=== PATIENT | male | born 1960 | race Caucasian/White ===

== ENCOUNTER 2021-10-01 14:19 | Inpatient (IN) | payer BC ==
[2021-10-01] MEDS ORDERED: methylPREDNISolone SOD SUCCI 125 MG/2 ML VIAL IV STA (16:52)
[2021-10-01] MEDS ORDERED: IPRATROPIUM-ALBUTEROL 3 ML NEB INHALATION STA ×2 (16:52→19:21)
[2021-10-01] MEDS ORDERED: ALBUTEROL NEB (CONC) 2.5 MG/0.5 ML INHALATION STA ×2 (16:52→19:21)
--- NOTE | 2021-10-01 17:06 | ED ---
SOB HPI - General Chief Complaint: Shortness of Breath Stated Complaint: asthma issues Time Seen by Provider: 10/01/21 16:37 Source: patient Mode of arrival: wheelchair Limitations: no limitations - History of Present Illness Initial Comments: 61 year-old male patient with past history significant for asthma presents for evaluation of worsening shortness of breath over the last 2-3 days. Patient states he has been using symbicort and doing breathing treatments with minimal relief of his symptoms. States that he has had increased cough and is coughing up green sputum. States this is a change. He denies any fever or chills. Denies any nausea or vomiting. States he has had diarrhea. He has remote history of smoking for a short time as a 21 year old. He denies any chest pain. Reports tightness. Has had hospitalizations for asthma in the past, never intubated. Patient denies any recent rash, constipation, back pain, numbness, tingling, dizziness, weakness, hematuria, dysuria, urinary urgency, urinary frequency, headache, visual changes, or any other complaints. - Related Data Allergies Allergy/AdvReac Type Severity Reaction Status Date / Time No Known Allergies Allergy Verified 10/01/21 15:45 Review of Systems ROS Statement: Those systems with pertinent positive or pertinent negative responses have been documented in the HPI. ROS Other: All systems not noted in ROS Statement are negative. Past Medical History Past Medical History: Asthma, Hypertension History of Any Multi-Drug Resistant Organisms: None Reported Past Surgical History: No Surgical Hx Reported Past Psychological History: No Psychological Hx Reported Smoking Status: Never smoker Past Alcohol Use History: Occasional Past Drug Use History: None Reported General Exam Limitations: no limitations General appearance: alert, in no apparent distress, other (This is a well- developed, well-nourished adult male patient in respiratory distress.) Eye exam: Present: normal appearance, PERRL, EOMI. Absent: scleral icterus, conjunctival injection, periorbital swelling ENT exam: Present: normal exam, normal oropharynx, mucous membranes moist Respiratory exam: Present: respiratory distress, wheezes (tight inspiratory and expiratory wheezing in the posterior lung feilds. ), other (Tachypnea, abdominal accessory muscle use). Absent: normal lung sounds bilaterally, rales, rhonchi, stridor Cardiovascular Exam: Present: regular rate, normal rhythm, normal heart sounds. Absent: systolic murmur, diastolic murmur, rubs, gallop, clicks GI/Abdominal exam: Present: soft, normal bowel sounds. Absent: distended, tenderness, guarding, rebound, rigid Neurological exam: Present: alert, oriented X3, CN II-XII intact Psychiatric exam: Present: normal affect, normal mood Skin exam: Present: warm, dry, intact, normal color. Absent: rash Course Vital Signs 10/01/21 10/01/21 10/01/21 15:46 16:48 17:25 Temperature 98.6 F Pulse Rate 100 107 H 104 H Respiratory 24 28 H Rate Blood Pressure 165/74 O2 Sat by Pulse 92 L 77 L Oximetry 10/01/21 10/01/21 17:35 18:16 Temperature Pulse Rate 108 H 104 H Respiratory 20 Rate Blood Pressure 161/87 O2 Sat by Pulse 96 Oximetry Medical Decision Making - Medical Decision Making 61-year-old male patient presents to the emergency department today for evaluation of increased shortness of breath and wheezing. Does have a history of severe asthma. He has been hospitalized before never intubated. Physical examination did reveal tachypnea, tight expiratory and inspiratory wheezing. Chest x-ray is negative. Labs are unremarkable. Tested negative for COVID. He was given updraft treatments, 2g IV magnesium, and 125mg Solumedrol. Upon reevaluation he is resting more comfortably. States symptoms are mildly improved. Went to the bathroom and was again. Given additional breathing treatments. He is admitted to the hospital for asthma exacerbation. He is agreeable this plan. My attending is Dr. Sosa. - Lab Data Result diagrams: 10/01/21 17:09 10/01/21 17:09 Lab Results 10/01/21 10/01/21 10/01/21 Range/Units 17:09 17:09 17:09 WBC 11.7 H (3.8-10.6) k/uL RBC 4.98 (4.30-5.90) m/uL Hgb 11.3 L (13.0-17.5) gm/dL Hct 37.5 L (39.0-53.0) % MCV 75.4 L (80.0-100.0) fL MCH 22.7 L (25.0-35.0) pg MCHC 30.1 L (31.0-37.0) g/dL RDW 16.6 H (11.5-15.5) % Plt Count 361 (150-450) k/uL MPV 6.8 Neutrophils % 81 % Lymphocytes % 7 % Monocytes % 6 % Eosinophils % 5 % Basophils % 1 % Neutrophils # 9.5 H (1.3-7.7) k/uL Lymphocytes # 0.8 L (1.0-4.8) k/uL Monocytes # 0.7 (0-1.0) k/uL Eosinophils # 0.6 (0-0.7) k/uL Basophils # 0.1 (0-0.2) k/uL Manual Slide Review Performed Hypochromasia Marked Anisocytosis Slight Microcytosis Slight PT 10.1 (9.0-12.0) sec INR 0.9 (<1.2) APTT 20.6 L (22.0-30.0) sec Sodium 138 (137-145) mmol/L Potassium 4.4 (3.5-5.1) mmol/L Chloride 104 (98-107) mmol/L Carbon Dioxide 24 (22-30) mmol/L Anion Gap 10 mmol/L BUN 18 (9-20) mg/dL Creatinine 0.76 (0.66-1.25) mg/dL Est GFR (CKD-EPI)AfAm >90 (>60 ml/min/1.73 sqM) Est GFR (CKD-EPI)NonAf >90 (>60 ml/min/1.73 sqM) Glucose 125 H (74-99) mg/dL Plasma Lactic Acid Christoph (0.7-2.0) mmol/L Calcium 9.1 (8.4-10.2) mg/dL Magnesium 2.0 (1.6-2.3) mg/dL Total Bilirubin 0.9 (0.2-1.3) mg/dL AST 54 (17-59) U/L ALT 31 (4-49) U/L Alkaline Phosphatase 86 (38-126) U/L Troponin I (0.000-0.034) ng/mL Total Protein 7.2 (6.3-8.2) g/dL Albumin 4.4 (3.5-5.0) g/dL Coronavirus (PCR) (Not Detectd) 01/17/22 01/17/22 01/17/22 Range/Units 17:09 17:09 17:18 WBC (3.8-10.6) k/uL RBC (4.30-5.90) m/uL Hgb (13.0-17.5) gm/dL Hct (39.0-53.0) % MCV (80.0-100.0) fL MCH (25.0-35.0) pg MCHC (31.0-37.0) g/dL RDW (11.5-15.5) % Plt Count (150-450) k/uL MPV Neutrophils % % Lymphocytes % % Monocytes % % Eosinophils % % Basophils % % Neutrophils # (1.3-7.7) k/uL Lymphocytes # (1.0-4.8) k/uL Monocytes # (0-1.0) k/uL Eosinophils # (0-0.7) k/uL Basophils # (0-0.2) k/uL Manual Slide Review Hypochromasia Anisocytosis Microcytosis PT (9.0-12.0) sec INR (<1.2) APTT (22.0-30.0) sec Sodium (137-145) mmol/L Potassium (3.5-5.1) mmol/L Chloride (98-107) mmol/L Carbon Dioxide (22-30) mmol/L Anion Gap mmol/L BUN (9-20) mg/dL Creatinine (0.66-1.25) mg/dL Est GFR (CKD-EPI)AfAm (>60 ml/min/1.73 sqM) Est GFR (CKD-EPI)NonAf (>60 ml/min/1.73 sqM) Glucose (74-99) mg/dL Plasma Lactic Acid Christoph 1.8 (0.7-2.0) mmol/L Calcium (8.4-10.2) mg/dL Magnesium (1.6-2.3) mg/dL Total Bilirubin (0.2-1.3) mg/dL AST (17-59) U/L ALT (4-49) U/L Alkaline Phosphatase (38-126) U/L Troponin I <0.012 (0.000-0.034) ng/mL Total Protein (6.3-8.2) g/dL Albumin (3.5-5.0) g/dL Coronavirus (PCR) Not Detected (Not Detectd) - EKG Data -: EKG Interpreted by Me EKG Comments: EKG obtained at 1743 shows sinus tachycardia at the rate of 102, UT interval 134, QRS duration 82, QT 344, QTC 448. No evidence of ST elevation or depression. - Radiology Data Radiology results: report reviewed, image reviewed X-ray of the chest is obtained. Report is reviewed in its entirety. Impression by Dr. Matos shows hiatal hernia. No active cardiopulmonary disease. Normal heart. Disposition Clinical Impression: Asthma exacerbation Disposition: ADMITTED IP TO THIS HOSP Condition: Serious Referrals: None,Stated [REFERRING] - 1-2 days Decision to Admit Reason: Admit from EC Decision Date: 10/01/21 Decision Time: 19:29
[2021-10-01] MEDS: MAGNESIUM SULFATE-D5W PMX 1 GM in DEXTROSE/WATER 1 100ML.BAG IVPB SCH ×2 (17:19→18:14)
[2021-10-01 17:22] LABS: Anisocytosis Slight; Basophils # (A) 0.1 k/uL (0-0.2); Basophils % (A) 1 %; Eosinophils # (A) 0.6 k/uL (0-0.7); Eosinophils % (A) 5 %; HCT 37.5 % (39.0-53.0); HGB 11.3 gm/dL (13.0-17.5); Hypochromasia Marked; Lymphocytes # (A) 0.8 k/uL (1.0-4.8); Lymphocytes % (A) 7 %; MCH 22.7 pg (25.0-35.0); MCHC 30.1 g/dL (31.0-37.0); MCV 75.4 fL (80.0-100.0); Mean Platelet Volume 6.8; Microcytosis Slight; Monocytes # (A) 0.7 k/uL (0-1.0); Monocytes % (A) 6 %; Neutrophils # (A) 9.5 k/uL (1.3-7.7); Neutrophils % (A) 81 %; Platelet Count 361 k/uL (150-450); RBC 4.98 m/uL (4.30-5.90); RDW 16.6 % (11.5-15.5); WBC 11.7 k/uL (3.8-10.6)
[2021-10-01 17:34] LABS: ALT 31 U/L (4-49); AST 54 U/L (17-59); African American GFR (CKD) >90 (>60 ml/min/1.73 sqM); Albumin 4.4 g/dL (3.5-5.0); Alkaline Phosphatase 86 U/L (38-126); Anion Gap 10 mmol/L; Blood Urea Nitrogen 18 mg/dL (9-20); Calcium 9.1 mg/dL (8.4-10.2); Carbon Dioxide 24 mmol/L (22-30); Chloride 104 mmol/L (98-107); Glucose 125 mg/dL (74-99); Non-African American GFR(CKD) >90 (>60 ml/min/1.73 sqM); Potassium 4.4 mmol/L (3.5-5.1); Sodium 138 mmol/L (137-145); Total Bilirubin 0.9 mg/dL (0.2-1.3); Total Protein 7.2 g/dL (6.3-8.2)
[2021-10-01 17:49] LABS: INR 0.9 (<1.2); Partial Thromboplastin Time 20.6 sec (22.0-30.0); Prothrombin Time 10.1 sec (9.0-12.0)
--- NOTE | 2021-10-01 18:04 | XR ---
EXAMINATION TYPE: XR chest 2V DATE OF EXAM: 10/01/2021 COMPARISON: NONE HISTORY: Short of breath TECHNIQUE: 2 views FINDINGS: Heart is normal. Lungs are clear of consolidation. There is hiatal hernia noted. There is n o pleural effusion. There are no hilar masses. Bony thorax is intact. IMPRESSION: Hiatal hernia. No active cardiopulmonary disease. Normal heart.
[2021-10-01] MEDS ORDERED: NALOXONE 0.4 MG/ML 1 ML VIAL IV PRN (19:21)
[2021-10-01 22:47] LABS: Glucose,Whole Blood 247 mg/dL (75-99)
[2021-10-02] MEDS: methylPREDNISolone SOD SUCCI 125 MG/2 ML VIAL IV SCH ×5 (00:16→23:50)
[2021-10-02] MEDS: IPRATROPIUM-ALBUTEROL 3 ML NEB INHALATION PRN ×3 (01:59→23:23)
[2021-10-02] MEDS ORDERED: ACETAMINOPHEN TAB 325 MG TAB PO STA (02:13)
[2021-10-02 07:16] LABS: Glucose,Whole Blood 184 mg/dL (75-99)
[2021-10-02] MEDS: IPRATROPIUM-ALBUTEROL 3 ML NEB INHALATION SCH ×4 (07:44→19:13)
[2021-10-02] MEDS: PANTOPRAZOLE 40 MG TABLET PO SCH (09:52)
[2021-10-02] MEDS: AZITHROMYCIN 500 MG TAB PO SCH (09:52)
[2021-10-02] MEDS: LOSARTAN 50 MG TAB PO SCH (11:11)
[2021-10-02 11:16] LABS: Glucose,Whole Blood 202 mg/dL (75-99)
--- NOTE | 2021-10-02 12:47 | P.CNPUL ---
History of Present Illness Consult date: 10/02/21 Requesting physician: Tyrell Holden Reason for consult: dyspnea, hypoxemia, abnormal CXR/CT Chief complaint: Shortness of breath History of present illness: This is a very pleasant 61-year-old male patient with a known history of chronic mild intermittent bronchial asthma, hypertension, gastroesophageal reflux disease, environmental ALLERGIES. He used to follow with Dr. HORACIO Castellano and was receiving ALLERGY shots but had not seen him in quite some time. He was only utilizing albuterol at home. With a past 4 days he developed increasing shortness of breath cough congestion green productive sputum chest tightness and wheezing. He started using his 's Symbicort that seemed to help. The patient is not vaccinated against COVID-19. He presented to the emergency room yesterday. Chest x-ray revealed evidence of a hiatal hernia. Lungs were clear consolidation. Normal heart size. White count 11.7. Hemoglobin 11.3. Platelets 336. Lymphocytes 0.8. Sodium 138. Potassium 4.4. Creatinine 0.76. Glucose 126. AST 54. ALT 31. Coronavirus by PCR not detected. He is seen today in consultation on the regular medical floor. Currently sitting up at the bedside. Awake and alert in no acute distress. Still with some chest tightness and wheezing. Still with productive green productive sputum. Maintaining O2 saturations in the 90s on 2 L/m per nasal cannula. Afebrile. Hemodynamically stable. Review of Systems REVIEW OF SYSTEMS: CONSTITUTIONAL: Denies any recent significant weight loss or weight gain. EYES: Denies change in vision. EARS, NOSE, MOUTH, THROAT: Denies headaches, denies sore throat. CARDIOVASCULAR: Denies chest pain, palpitations or syncopal episodes. RESPIRATORY: Positive for shortness of breath, cough, congestion no hemoptysis. GASTROINTESTINAL: Denies change in appetite, denies abdominal pain GENITOURINARY: Denies hematuria, denies infections. MUSKULOSKELETAL: Denies pain, denies swelling. INTEGUMENTARY: Denies rash, denies eczema. NEUROLOGICAL: Denies recent memory loss, no recent seizure activity. PSYCHIATRIC: Denies anxiety, denies depression. HEMATOLOGIC/LYMPHATIC: Denies anemia, denies enlarged lymph nodes. Past Medical History Past Medical History: Asthma, Hypertension Additional Past Medical History / Comment(s): Dr Jbsa Lackland following BP not on any medications at this time. History of Any Multi-Drug Resistant Organisms: None Reported Past Surgical History: No Surgical Hx Reported Additional Past Surgical History / Comment(s): colonoscopy, cataract surgery taylor eyes, Past Psychological History: No Psychological Hx Reported Smoking Status: Never smoker Past Alcohol Use History: Occasional Past Drug Use History: None Reported - Past Family History Father Family Medical History: Asthma, Myocardial Infarction ([place]) Additional Family Medical History / Comment(s): at age 47 of [place] Mother Family Medical History: CVA/TIA Additional Family Medical History / Comment(s): at age 68 of cva Medications and Allergies Home Medications Medication Instructions Recorded Confirmed Type Albuterol Sulfate [Albuterol 2 puff PO RT-Q4H PRN 10/01/21 10/01/21 History Sulfate Hfa] Allergies Allergy/AdvReac Type Severity Reaction Status Date / Time No Known Allergies Allergy Verified 10/01/21 20:14 Physical Exam Vitals: Vital Signs Temp Pulse Pulse Resp BP BP Pulse Ox 10/02/21 11:35 94 L 10/02/21 11:21 104 H 10/02/21 11:20 98.1 F 94 20 158/86 96 10/02/21 11:10 100 94 L 10/02/21 07:53 92 10/02/21 07:44 92 10/02/21 07:21 96 16 170/89 10/02/21 05:59 92 10/02/21 05:49 90 10/02/21 02:11 92 10/02/21 02:00 97.6 F 88 16 172/81 97 10/02/21 01:59 92 10/01/21 22:50 97.9 F 104 H 28 H 170/95 95 10/01/21 21:00 98.6 F 92 16 176/93 95 10/01/21 20:00 104 H 28 H 10/01/21 19:52 99 10/01/21 19:41 98 10/01/21 18:16 104 H 20 161/87 96 10/01/21 17:35 108 H 10/01/21 17:25 104 H 10/01/21 16:48 107 H 28 H 77 L 10/01/21 15:46 98.6 F 100 24 165/74 92 L Intake and Output 10/01/21 10/02/21 10/02/21 22:59 06:59 14:59 Intake Total 200 Balance 200 Intake: Oral 200 Other: Voiding Method Toilet Weight 90.718 kg GENERAL EXAM: Alert, very pleasant 61-year-old gentleman, on 2 L nasal cannula, fairly comfortable in no apparent distress. HEAD: Normocephalic. EYES: Normal reaction of pupils, equal size. NOSE: Clear with pink turbinates. THROAT: No erythema or exudates. NECK: No masses, no JVD. CHEST: No chest wall deformity. LUNGS: Equal air entry with bilateral expiratory wheeze, few scattered rhonchi. CVS: S1 and S2 normal with no audible murmur, regular rhythm. ABDOMEN: No hepatosplenomegaly, normal bowel sounds, no guarding or rigidity. SPINE: No scoliosis or deformity SKIN: No rashes CENTRAL NERVOUS SYSTEM: No focal deficits, tone is normal in all 4 extremities. EXTREMITIES: There is no peripheral edema. No clubbing, no cyanosis. Peripheral pulses are intact. Results - Laboratory Findings CBC and BMP: 10/01/21 17:09 10/01/21 17:09 PT/INR, D-dimer PT 10.1 sec (9.0-12.0) 10/01/21 17:09 INR 0.9 (<1.2) 10/01/21 17:09 Abnormal lab findings: Abnormal Labs 10/01/21 10/01/21 10/01/21 17:09 17:09 17:09 WBC 11.7 H Hgb 11.3 L Hct 37.5 L MCV 75.4 L MCH 22.7 L MCHC 30.1 L RDW 16.6 H Neutrophils # 9.5 H Lymphocytes # 0.8 L APTT 20.6 L Glucose 125 H POC Glucose (mg/dL) 10/01/21 10/02/21 10/02/21 22:46 07:14 11:03 WBC Hgb Hct MCV MCH MCHC RDW Neutrophils # Lymphocytes # APTT Glucose POC Glucose (mg/dL) 247 H 184 H 202 H - Diagnostic Findings Chest x-ray: image reviewed Assessment and Plan Assessment: 1 Acute hypoxemic respiratory failure secondary to an acute exacerbation of mild intermittent chronic bronchial asthma complicated by acute tracheobronchitis. COVID-19 screen negative. Patient is not vaccinated. 2 History of gastroesophageal reflux disease 3 History of multiple environmental ALLERGIES with previous ALLERGY shots 4 Hypertension not on medication in the outpatient setting Plan: The patient was seen and evaluated Chest x-ray, labs reviewed Add Symbicort, Singulair, albuterol, IV Solu-Medrol Obtain a sputum sample Empiric antibiotics in the form of azithromycin Protonix for GI prophylaxis Heparin for DVT prophylaxis Titrate the FiO2 as tolerated Possible discharge in the a.m. We will continue to follow and make further recommendations based on his clinical status I, the cosigning physician, performed a history & physical examination of the patient. Lungs sounds with bilateral end expiratory wheeze, few scattered rhonchi. Maintaining good O2 saturations in the 90s on 2 L/m per nasal cannula. I discussed the assessment and plan of care with my nurse practitioner, Any Waldrop. I attest to the above consultation as dictated by her. Time with Patient: Greater than 30
[2021-10-02] MEDS: INSULIN ASPART (NovoLOG) 100 UNIT/ML VIAL SQ SCH ×3 (13:12→21:11)
--- NOTE | 2021-10-02 14:15 | HP ---
HISTORY AND PHYSICAL CHIEF COMPLAINT: Difficulty breathing, shortness of breath. HISTORY OF PRESENT ILLNESS: This is the first known admission for this 61-year-old white male who has a history of aspirin. He has not been in the office for almost a year. He started to have more and more difficulty breathing and came to the emergency room. He has a negative COVID. He has had no hemoptysis, fever, chills, etc. PAST MEDICAL HISTORY: Past medical history, family history, personal and social histories are all otherwise unremarkable or noncontributory. He is not using any medications currently. He does have a history of hypertension. He used to smoke but does not any longer. He has not been vaccinated. PHYSICAL EXAMINATION: Blood pressure is 180/96 with a pulse of 88, respirations of 18. He is afebrile. In general, appeared to be well developed, well nourished, no acute distress. Skin color is normal. Skin is warm, dry. Lymph nodes are not enlarged. Head, ears, eyes, nose, mouth and throat are normal. Neck veins are not distended. Chest demonstrated decreased breath sounds with inspiratory and expiratory wheezing and occasional rales and scattered rhonchi. He has a slight increased expiratory wheeze. Cardiac exam is normal. Abdomen is soft, nontender. Extremities are normal. IMPRESSION: 1. Status asthmatic. 2. Hypertension. PLAN: 1. Updrafts. 2. IV and inhaled steroids. 3. Manage blood pressure. MMODL / IJN: [id number] /
--- NOTE | 2021-10-02 14:15 | PN ---
PROGRESS NOTE CHIEF COMPLAINT: Shortness of breath. HISTORY OF PRESENT ILLNESS: This gentleman is feeling a little bit better. He is a little bit less short of breath then when he came. PHYSICAL EXAMINATION: He has scattered wheezing, rales and rhonchi. Cardiac exam is normal. Abdomen is soft and nontender. IMPRESSION: 1. Status asthmaticus. 2. Hypertension. PLAN: Progress activity and continue with management of his pulmonary problems and monitoring his blood pressure. MMODL / IJN: [id number] /
[2021-10-02 17:30] LABS: Glucose,Whole Blood 219 mg/dL (75-99)
[2021-10-02] MEDS: SYMBICORT 160-4.5 MCG INHALER INHALATION SCH (19:13)
[2021-10-02 20:13] LABS: Glucose,Whole Blood 174 mg/dL (75-99)
[2021-10-02 20:30] VITALS: RESP 16
[2021-10-02] MEDS ORDERED: MONTELUKAST 10 MG TAB PO SCH (21:00)
[2021-10-03] MEDS: IPRATROPIUM-ALBUTEROL 3 ML NEB INHALATION PRN (03:37)
[2021-10-03] MEDS: methylPREDNISolone SOD SUCCI 125 MG/2 ML VIAL IV SCH ×2 (04:59→11:51)
[2021-10-03] MEDS: IPRATROPIUM-ALBUTEROL 3 ML NEB INHALATION SCH ×2 (07:12→11:20)
[2021-10-03] MEDS: SYMBICORT 160-4.5 MCG INHALER INHALATION SCH (07:12)
[2021-10-03 07:49] LABS: Glucose,Whole Blood 168 mg/dL (75-99)
[2021-10-03 08:24] VITALS: BP 147/77; TEMP 98
[2021-10-03] MEDS: AZITHROMYCIN 500 MG TAB PO SCH (08:37)
[2021-10-03] MEDS: LOSARTAN 50 MG TAB PO SCH (08:37)
[2021-10-03] MEDS: INSULIN ASPART (NovoLOG) 100 UNIT/ML VIAL SQ SCH ×2 (08:38→12:41)
[2021-10-03] MEDS: PANTOPRAZOLE 40 MG TABLET PO SCH (08:38)
[2021-10-03 11:36] VITALS: PULSE 94
[2021-10-03 11:56] LABS: Glucose,Whole Blood 236 mg/dL (75-99)
--- NOTE | 2021-10-03 14:10 | P.PN ---
Subjective Progress Note Date: 10/03/21 Principal diagnosis: Dyspnea, hypoxia This is a very pleasant 61-year-old male patient with a known history of chronic mild intermittent bronchial asthma, hypertension, gastroesophageal reflux disease, environmental ALLERGIES. He used to follow with Dr. HORACIO Castellano and was receiving ALLERGY shots but had not seen him in quite some time. He was only utilizing albuterol at home. With a past 4 days he developed increasing shortness of breath cough congestion green productive sputum chest tightness and wheezing. He started using his 's Symbicort that seemed to help. The patient is not vaccinated against COVID-19. He presented to the emergency room yesterday. Chest x-ray revealed evidence of a hiatal hernia. Lungs were clear consolidation. Normal heart size. White count 11.7. Hemoglobin 11.3. Platelets 336. Lymphocytes 0.8. Sodium 138. Potassium 4.4. Creatinine 0.76. Glucose 126. AST 54. ALT 31. Coronavirus by PCR not detected. He is seen today in consultation on the regular medical floor. Currently sitting up at the bedside. Awake and alert in no acute distress. Still with some chest tightness and wheezing. Still with productive green productive sputum. Maintaining O2 saturations in the 90s on 2 L/m per nasal cannula. Afebrile. Hemodynamically stable. On 10/03/2021 patient seen in follow-up on medical surgical floor, he is awake and alert, in no acute distress, he states he is feeling much better today, breathing much easier, he is currently on 2 L of oxygen with a pulse ox of 96%, patient was given home oxygen assessment, and a room air pulse ox at rest was 93%, and with exercise with 90%, and patient did not qualify for home oxygen, vital signs have been stable overnight, no worsening cough or dyspnea, afebrile, hemodynamically his been stable. She has been treated with IV steroids, antibiotics, and nebulized bronchodilators, tolerating ambulation in the room. No new chest x-ray or labs. No acute events overnight, sounds much less bronchospastic on today's exam, stable for discharge home today Objective - Vital Signs Vital signs: Vital Signs Temp 98 F 10/03/21 08:23 Pulse 94 10/03/21 11:31 Resp 16 10/03/21 08:23 BP 147/77 10/03/21 08:23 Pulse Ox 96 10/03/21 10:14 Intake & Output 10/02/21 10/03/21 10/03/21 18:59 06:59 18:59 Intake Total 1200 590 600 Balance 1200 590 600 Intake: Oral 1200 590 600 Other: Voiding Method Toilet Toilet Toilet # Voids 4 2 - Exam GENERAL EXAM: Alert, very pleasant, 61-year-old white male, on room air with a pulse ox of 93% comfortable in no apparent distress. HEAD: Normocephalic/atraumatic. EYES: Normal reaction of pupils, equal size. Conjunctiva pink, sclera white. NOSE: Clear with pink turbinates. THROAT: No erythema or exudates. NECK: No masses, no JVD, no thyroid enlargement, no adenopathy. CHEST: No chest wall deformity. Symmetrical expansion. LUNGS: Equal air entry with no crackles, wheeze, rhonchi or dullness. CVS: Regular rate and rhythm, normal S1 and S2, no gallops, no murmurs, no rubs ABDOMEN: Soft, nontender. No hepatosplenomegaly, normal bowel sounds, no guarding or rigidity. EXTREMITIES: No clubbing, no edema, no cyanosis, 2+ pulses and upper and lower extremities. MUSCULOSKELETAL: Muscle strength and tone normal. SPINE: No scoliosis or deformity SKIN: No rashes CENTRAL NERVOUS SYSTEM: Alert and oriented -3. No focal deficits, tone is normal in all 4 extremities. PSYCHIATRIC: Alert and oriented -3. Appropriate affect. Intact judgment and insight. - Labs CBC & Chem 7: 10/01/21 17:09 10/01/21 17:09 Labs: Abnormal Lab Results - Last 24 Hours (Table) 10/02/21 10/02/21 10/03/21 Range/Units 17:28 20:11 07:48 POC Glucose (mg/dL) 219 H 174 H 168 H (75-99) mg/dL 10/03/21 Range/Units 11:54 POC Glucose (mg/dL) 236 H (75-99) mg/dL Assessment and Plan Plan: Assessment: #1. Acute hypoxic respiratory failure secondary to acute exacerbation of intermittent chronic bronchial asthma, complicated with acute purulent tracheobronchitis, COVID-19 PCR was negative, patient is not vaccinated against: 19 #2. History of GERD/reflux #3. History of multiple environmental Allergies with previous Allergy shots #4. Hypertension Plan: Patient is clinically improving No acute events overnight He is on supplemental oxygen, maintaining stable O2 saturations Tolerating ambulation Stable for discharge home from pulmonary perspective He can complete prednisone taper or Medrol Dosepak Complete outpatient course of oral antibiotics Continue Singulair Symbicort Outpatient follow-up with Dr. Yanes in the office in one week I performed a history & physical examination of the patient and discussed their management with my nurse practitioner, Trixie Santos. I reviewed the nurse practitioner's note and agree with the documented findings and plan of care. Lung sounds are positive for clear breath sounds throughout the lung kirk. The findings and the impression was discussed with the patient. I attest to the documentation by the nurse practitioner. Time with Patient: Less than 30
[2021-10-04] MEDS ORDERED: methylPREDNISolone 4 MG TAB TAPER PO SCH (09:00)
== END 2021-10-03 13:10 | disposition home or self-care (01) | DRG 202 ==
LOC: EC 14:19 → 5NMEDONC 19:21
PROVIDERS: ADMIT Family Medicine; ATTEND Family Medicine
DX: J45.22 Mild intermittent asthma with status asthmaticus (principal); J96.01 Acute respiratory failure with hypoxia; I10 Essential (primary) hypertension; J20.9 Acute bronchitis, unspecified; K44.9 Diaphragmatic hernia without obstruction or gangrene; Z20.822 Contact with and (suspected) exposure to COVID-19; K21.9 Gastro-esophageal reflux disease without esophagitis; Z79.899 Other long term (current) drug therapy; Z82.3 Family history of stroke; Z82.49 Family history of ischemic heart disease and other diseases of the circulatory system; Z82.5 Family history of asthma and other chronic lower respiratory diseases; Z87.891 Personal history of nicotine dependence; Z98.42 Cataract extraction status, left eye; Z98.41 Cataract extraction status, right eye; Z91.048 Other nonmedicinal substance allergy status; Z98.890 Other specified postprocedural states
CPT/HCPCS: 36415; 71046; 80053; 83605; 83735; 84484; 85025; 85610; 85730; 87635; 93005; 94640; 94760; 96365; 96366; 96375; 99285

== ENCOUNTER 2023-10-25 10:38 | Inpatient (IN) | payer BC ==
--- NOTE | 2023-10-25 11:23 | ED ---
General Adult HPI - General Chief complaint: Dizziness Stated complaint: Vomiting,Dizziness Time Seen by Provider: 10/25/23 10:50 Source: patient, family, RN notes reviewed, old records reviewed Mode of arrival: wheelchair Limitations: no limitations - History of Present Illness Initial comments: This is a 63-year-old male who presents to the emergency department and states he is on high blood pressure medication however patient did not take blood pre ssure meds. Patient states that he has been off them for quite a while now. Patient states he is also a heavy drinker and he stopped cold turkey 5 weeks ago. Patient states since then he has been losing weight and has been very dizzy anytime he stands up. Patient states he is not feeling like he is going to pass out just that he is going to fall over. Patient denies a headache patient states she is extremely tired and weak ever since he stopped drinking. Patient denies any chest pain difficulty breathing shortness of breath. Patient dates he does have an occasional cough. Patient states he is also very constipated and his abdomen is distended because he has not been able go to bathroom. Patient states he is eating and drinking normally. - Related Data Home Medications Medication Instructions Recorded Confirmed Albuterol Sulfate [Albuterol 2 puff PO RT-Q4H PRN 10/01/21 10/01/21 Sulfate Hfa] Previous Rx's Medication Instructions Recorded Azithromycin [Zithromax] 500 mg PO DAILY #7 tab 10/03/21 Budesonide-Formot 160-4.5 Mcg 2 puff INHALATION RT-BID 30 Days 10/03/21 [Symbicort 160-4.5 Mcg Inhaler] #1 dispenser Losartan [Cozaar] 100 mg PO DAILY #10 tab 10/03/21 Montelukast [Singulair] 10 mg PO HS #30 tab 10/03/21 methylPREDNISolone Dose Pack 24 mg PO DAILY 7 Days #1 pack 10/03/21 [Medrol Dose Pack] Allergies Allergy/AdvReac Type Severity Reaction Status Date / Time No Known Allergies Allergy Verified 10/25/23 10:56 Review of Systems ROS Statement: Those systems with pertinent positive or pertinent negative responses have been documented in the HPI. ROS Other: All systems not noted in ROS Statement are negative. Past Medical History Past Medical History: Asthma, Hypertension Additional Past Medical History / Comment(s): Dr Holden following not on any medications at this time. History of Any Multi-Drug Resistant Organisms: None Reported Past Surgical History: No Surgical Hx Reported Additional Past Surgical History / Comment(s): colonoscopy, cataract surgery taylor eyes, Past Psychological History: No Psychological Hx Reported Smoking Status: Never smoker Past Alcohol Use History: Occasional Past Drug Use History: None Reported - Past Family History Father Family Medical History: Asthma, Myocardial Infarction ([place]) Additional Family Medical History / Comment(s): at age 47 of [place] Mother Family Medical History: CVA/TIA Additional Family Medical History / Comment(s): at age 68 of cva General Exam - General Exam Comments Initial Comments: GENERAL: Patient is well-developed and well-nourished. Patient is nontoxic and well- hydrated and is in mild distress. ENT: Neck is soft and supple. No significant lymphadenopathy is noted. Oropharynx is clear. Moist mucous membranes. Neck has full range of motion without eliciting any pain. EYES: The sclera were anicteric and conjunctiva were pink and moist. Extraocular movements were intact and pupils were equal round and reactive to light. Eyelids were unremarkable. PULMONARY: Unlabored respirations. Good breath sounds bilaterally. No audible rales rhonchi or wheezing was noted. CARDIOVASCULAR: There is a regular rate and rhythm without any murmurs gallops or rubs. ABDOMEN: Soft and nontender with normal bowel sounds. SKIN: Skin is clear with no lesions or rashes and otherwise unremarkable. NEUROLOGIC: Patient is alert and oriented x3. Cranial nerves II through XII are grossly intact. Motor and sensory are also intact. Normal speech, volume and content. Symmetrical smile. MUSCULOSKELETAL: Normal extremities with adequate strength and full range of motion. No lower extremity swelling or edema. No calf tenderness. LYMPHATICS: No significant lymphadenopathy is noted PSYCHIATRIC: Normal psychiatric evaluation. Limitations: no limitations Course Vital Signs 10/25/23 10/25/23 10:43 11:35 Temperature 97.9 F Pulse Rate 122 H 111 H Respiratory 20 18 Rate Blood Pressure 151/101 168/113 O2 Sat by Pulse 98 98 Oximetry Medical Decision Making - Medical Decision Making EKG is interpreted by myself. EKG shows sinus tachycardia at 111 bpm parables 142 QRS is 80 QT interval 308 QTc is 374. Patient's EKG shows no ST segment elevation or depression. Was pt. sent in by a medical professional or institution (RAFIQ Baig, PARTNERSHIP MARKETING MANAGER, urgent care, hospital, or skilled nursing...) When possible be specific @ -No Did you speak to anyone other than the patient for history (EMS, parent, family, police, friend...)? What history was obtained from this source @ -No Did you review nursing and triage notes (agree or disagree)? Why? @ -I reviewed and agree with nursing and triage notes Were old charts reviewed (outside hosp., previous admission, EMS record, old EKG, old radiological studies, urgent care reports/EKG's, skilled nursing records)? Report findings @ -I reviewed prior charts and lab work on this patient Differential Diagnosis (chest pain, altered mental status, abdominal pain women, abdominal pain men, vaginal bleeding, weakness, fever, dyspnea, syncope, headache, dizziness, GI bleed, back pain, seizure, CVA, palpatations, mental health, musculoskeletal)? @ -Differential Weakness: Hypoglycemia, shock, sepsis, hyponatremia, anemia, infection, [place], ETOH, adverse medicine reaction, overdose, stroke, this is not meant to be an all-inclusive list. Differential Dizziness: Benign paroxysmal positional Vertigo, Menieres disease, otitis media, acoustic neuroma, vertebrobasilar insufficiency, cerebellar stroke, encephalitis, hypovolemic, arrhythmia, coronary artery syndrome, anemia, this is not meant to be an all-inclusive list EKG interpreted by me (3pts min.). @ -As above X-rays interpreted by me (1pt min.). @ -Chest x-ray shows no acute abnormality. KUB shows constipation and a hiatal hernia. CT interpreted by me (1pt min.). @ -CT of the brain shows no acute abnormality other than left maxillary sinusitis U/S interpreted by me (1pt. min.). @ -None done What testing was considered but not performed or refused? (CT, X-rays, U/S, labs)? Why? @ -None What meds were considered but not given or refused? Why? @ -None Did you discuss the management of the patient with other professionals (professionals i.e. RAFIQ Baig, PARTNERSHIP MARKETING MANAGER, lab, RT, psych nurse, web content & social media manager, radio recorder, teacher, supply requirements officer, rifle case repairer)? Give summary @ -I spoke with Dr. Lieberman and he agreed to admit the patient Was smoking cessation discussed for >3mins.? @ -No Was critical care preformed (if so, how long)? @ -35 minutes Were there social determinants of health that impacted care today? How? ( Homelessness, low income, unemployed, alcoholism, drug addiction, transportation, low edu. Level, literacy, decrease access to med. care, senior care, rehab)? @ -No Was there de-escalation of care discussed even if they declined (Discuss DNR or withdrawal of care, Hospice)? DNR status @ -No What co-morbidities impacted this encounter? (DM, HTN, Smoking, COPD, CAD, Cancer, CVA, ARF, Chemo, Hep., AIDS, mental health diagnosis, sleep apnea, morbid obesity)? @ -None Was patient admitted / discharged? Hospital course, mention meds given and route, prescriptions, significant lab abnormalities, going to OR and other pertinent info. @ -Patient came in feeling dizzy and weak patient appears to be in DKA patient has no history of diabetes. I started the patient on 2 and half liters of normal saline fluid and then give the patient a bolus of insulin then put the patient on a drip of insulin. I spoke with Dr. Lieberman and he agreed admit the patient admit the patient but the patient on the DKA protocol Undiagnosed new problem with uncertain prognosis? @ -No Drug Therapy requiring intensive monitoring for toxicity (Heparin, Nitro, Insulin, Cardizem)? @ -No Were any procedures done? @ -No Diagnosis/symptom? @ -Diabetic ketoacidosis Acute, or Chronic, or Acute on Chronic? @ -Acute Uncomplicated (without systemic symptoms) or Complicated (systemic symptoms)? @ -Complicated Side effects of treatment? @ -No Exacerbation, Progression, or Severe Exacerbation? @ -No Poses a threat to life or bodily function? How? (Chest pain, [place], [place], pneumonia, PE, COPD, DKA, ARF, appy, cholecystitis, CVA, Diverticulitis, Homicidal, Suicidal, threat to staff... and all critical care pts) @ -Yes this could lead to significant endorgan dysfunction - Lab Data Result diagrams: 10/25/23 11:23 10/25/23 11:23 Lab Results 10/25/23 10/25/23 10/25/23 Range/Units 11:23 11:23 11:23 WBC 8.8 (3.8-10.6) k/uL RBC 6.40 H (4.30-5.90) m/uL Hgb 19.0 H (13.0-17.5) gm/dL Hct 58.0 H* (39.0-53.0) % MCV 90.6 (80.0-100.0) fL MCH 29.7 (25.0-35.0) pg MCHC 32.8 (31.0-37.0) g/dL RDW 13.5 (11.5-15.5) % Plt Count 277 (150-450) k/uL MPV 8.6 Neutrophils % 74 % Lymphocytes % 16 % Monocytes % 6 % Eosinophils % 1 % Basophils % 1 % Neutrophils # 6.5 (1.3-7.7) k/uL Lymphocytes # 1.4 (1.0-4.8) k/uL Monocytes # 0.5 (0-1.0) k/uL Eosinophils # 0.1 (0-0.7) k/uL Basophils # 0.1 (0-0.2) k/uL Sodium 130 L (137-145) mmol/L Potassium 5.5 H (3.5-5.1) mmol/L Chloride 99 (98-107) mmol/L Carbon Dioxide 6 L* (22-30) mmol/L Anion Gap 25 mmol/L BUN 19 (9-20) mg/dL Creatinine 0.95 (0.66-1.25) mg/dL Est GFR (CKD-EPI)AfAm >90 (>60 ml/min/1.73 sqM) Est GFR (CKD-EPI)NonAf 87 (>60 ml/min/1.73 sqM) Glucose 669 H* (74-99) mg/dL Plasma Lactic Acid Christoph 2.4 H* (0.7-2.0) mmol/L Calcium 10.0 (8.4-10.2) mg/dL Magnesium 2.2 (1.6-2.3) mg/dL Total Bilirubin 0.7 (0.2-1.3) mg/dL AST 23 (17-59) U/L ALT 30 (4-49) U/L Alkaline Phosphatase 141 H (38-126) U/L Total Protein 7.4 (6.3-8.2) g/dL Albumin 4.5 (3.5-5.0) g/dL Influenza Type A (PCR) (Not Detectd) Influenza Type B (PCR) (Not Detectd) RSV (PCR) (Not Detectd) SARS-CoV-2 (PCR) (Not Detectd) 10/25/23 Range/Units 11:23 WBC (3.8-10.6) k/uL RBC (4.30-5.90) m/uL Hgb (13.0-17.5) gm/dL Hct (39.0-53.0) % MCV (80.0-100.0) fL MCH (25.0-35.0) pg MCHC (31.0-37.0) g/dL RDW (11.5-15.5) % Plt Count (150-450) k/uL MPV Neutrophils % % Lymphocytes % % Monocytes % % Eosinophils % % Basophils % % Neutrophils # (1.3-7.7) k/uL Lymphocytes # (1.0-4.8) k/uL Monocytes # (0-1.0) k/uL Eosinophils # (0-0.7) k/uL Basophils # (0-0.2) k/uL Sodium (137-145) mmol/L Potassium (3.5-5.1) mmol/L Chloride (98-107) mmol/L Carbon Dioxide (22-30) mmol/L Anion Gap mmol/L BUN (9-20) mg/dL Creatinine (0.66-1.25) mg/dL Est GFR (CKD-EPI)AfAm (>60 ml/min/1.73 sqM) Est GFR (CKD-EPI)NonAf (>60 ml/min/1.73 sqM) Glucose (74-99) mg/dL Plasma Lactic Acid Christoph (0.7-2.0) mmol/L Calcium (8.4-10.2) mg/dL Magnesium (1.6-2.3) mg/dL Total Bilirubin (0.2-1.3) mg/dL AST (17-59) U/L ALT (4-49) U/L Alkaline Phosphatase (38-126) U/L Total Protein (6.3-8.2) g/dL Albumin (3.5-5.0) g/dL Influenza Type A (PCR) Not Detected (Not Detectd) Influenza Type B (PCR) Not Detected (Not Detectd) RSV (PCR) Not Detected (Not Detectd) SARS-CoV-2 (PCR) Not Detected (Not Detectd) Disposition Clinical Impression: Diabetic ketoacidosis Disposition: ADMITTED IP TO THIS HOSP Referrals: Tyrell Holden MD [Primary Care Provider] - 1-2 days Time of Disposition: 12:37
[2023-10-25 11:34] LABS: Basophils # (A) 0.1 k/uL (0-0.2); Basophils % (A) 1 %; Eosinophils # (A) 0.1 k/uL (0-0.7); Eosinophils % (A) 1 %; Lymphocytes # (A) 1.4 k/uL (1.0-4.8); Lymphocytes % (A) 16 %; MCH 29.7 pg (25.0-35.0); MCHC 32.8 g/dL (31.0-37.0); MCV 90.6 fL (80.0-100.0); Mean Platelet Volume 8.6; Monocytes # (A) 0.5 k/uL (0-1.0); Monocytes % (A) 6 %; Neutrophils # (A) 6.5 k/uL (1.3-7.7); Neutrophils % (A) 74 %; Platelet Count 277 k/uL (150-450); RDW 13.5 % (11.5-15.5); WBC 8.8 k/uL (3.8-10.6)
[2023-10-25] MEDS: SODIUM CHLORIDE 0.9% 1,000 ML IV ONE (11:34)
[2023-10-25] MEDS: SODIUM CHLORIDE 0.9% 500 ML 500 ML IV ONE (11:35)
[2023-10-25] MEDS: hydrALAZINE HCL 20 MG/ML 1 ML VIAL IVP STA ×2 (11:40→13:52)
[2023-10-25] MEDS: hydrALAZINE HCL 20 MG/ML 1 ML VIAL IM STA (11:44)
[2023-10-25 12:03] LABS: ALT 30 U/L (4-49); AST 23 U/L (17-59); African American GFR (CKD) >90 (>60 ml/min/1.73 sqM); Albumin 4.5 g/dL (3.5-5.0); Alkaline Phosphatase 141 U/L (38-126); Anion Gap 25 mmol/L; Blood Urea Nitrogen 19 mg/dL (9-20); Chloride 99 mmol/L (98-107); Magnesium 2.2 mg/dL (1.6-2.3); Non-African American GFR(CKD) 87 (>60 ml/min/1.73 sqM); Potassium 5.5 mmol/L (3.5-5.1); Sodium 130 mmol/L (137-145); Total Bilirubin 0.7 mg/dL (0.2-1.3); Total Protein 7.4 g/dL (6.3-8.2)
--- NOTE | 2023-10-25 12:13 | CT ---
EXAMINATION TYPE: CT brain wo con DATE OF EXAM: 10/25/2023 COMPARISON: None HISTORY: Dizziness for several weeks CT DLP: 1138.4 mGycm Automated exposure control for dose reduction was used. FINDINGS: The ventricles, basal cisterns and sulci over convexities are within normal limits for the patient's age and there is no mass affect or shift midline structures. There is no acute intra or extra-axial hemorrhage. Posterior fossa is grossly normal. The intraorbital contents appear normal and symmetric. There are bilateral sinonasal antrostomies and there is an air-fluid level in the left maxillary sinu s consistent with acute sinusitis. The mastoid air cells are well aerated. IMPRESSION: 1. No acute bleed or mass effect. 2. Sinus surgery as described. 3. Acute sinusitis left maxillary sinus. IMPRESSION:
--- NOTE | 2023-10-25 12:18 | XR ---
EXAMINATION TYPE: XR chest 2V DATE OF EXAM: 10/25/2023 COMPARISON: 10/01/2021 HISTORY: Difficulty breathing TECHNIQUE: Frontal and lateral views of the chest are obtained. FINDINGS: The lungs are clear consolidated, interstitial and masslike opacity. There is no pleural effusion, pleural thickening or pneumothorax. The heart and pulmonary vasculature are normal. There is a moderate hiatal hernia unchanged compared to previous. The osseous structures are intact. IMPRESSION: 1. No acute cardiopulmonary disease. 2. Moderate hiatal hernia with no interval change.
--- NOTE | 2023-10-25 12:20 | XR ---
KUB. HISTORY: Abdominal pain. COMPARISON: None. TECHNIQUE: 2 upright views of the abdomen were obtained. FINDINGS: The lung bases are clear. There is no free intraperitoneal air beneath the diaphragm. There is a mode rate hiatal hernia. The bowel gas pattern is nonspecific and there is no evidence of obstruction. No suspicious abdominal or pelvic calcifications are seen. The osseous structures are intact. IMPRESSION: Nonspecific abdomen without evidence of free air or obstruction. Moderate hiatal hernia.
[2023-10-25 12:21] LABS: Carbon Dioxide 6 mmol/L (22-30); Glucose 669 mg/dL (74-99)
[2023-10-25] MEDS ORDERED: DEXTROSE 50% SYRINGE 50 ML IVP PRN ×2 (12:25)
[2023-10-25] MEDS ORDERED: Potassium Replacement Protocol 1 EACH MISC MISCELLANE PRN (12:25)
[2023-10-25] MEDS ORDERED: Magnesium Replacement Protocol 1 EACH MISC MISCELLANE PRN (12:25)
[2023-10-25] MEDS ORDERED: INSULIN REGULAR 100 UNIT in SODIUM CHLORIDE 0.9% 100 ML IV SCH (12:45)
[2023-10-25] MEDS ORDERED: SODIUM CHLORIDE 0.9% 1,000 ML IV SCH (12:45)
[2023-10-25 13:03] LABS: VBG PH 7.14 (7.31-7.41)
[2023-10-25] MEDS: SODIUM CHLORIDE 0.9% 1,000 ML IV SCH (13:06)
[2023-10-25] MEDS: INSULIN REGULAR BOLUS (FROM DRIP BAG) IV ONE (13:07)
[2023-10-25 13:09] LABS: Glucose,Whole Blood 583 mg/dL (70-110)
[2023-10-25] MEDS: INSULIN REGULAR 100 UNIT in SODIUM CHLORIDE 0.9% 100 ML IV SCH (13:12)
[2023-10-25 14:02] LABS: Glucose,Whole Blood 443 mg/dL (70-110)
[2023-10-25 15:06] LABS: Glucose,Whole Blood 432 mg/dL (70-110)
[2023-10-25 15:34] LABS: African American GFR (CKD) >90 (>60 ml/min/1.73 sqM); Anion Gap 17 mmol/L; Blood Urea Nitrogen 16 mg/dL (9-20); Chloride 108 mmol/L (98-107); Glucose 415 mg/dL (74-99); Non-African American GFR(CKD) >90 (>60 ml/min/1.73 sqM); Potassium 4.4 mmol/L (3.5-5.1); Sodium 133 mmol/L (137-145)
[2023-10-25 15:43] LABS: Carbon Dioxide 8 mmol/L (22-30)
[2023-10-25 16:01] LABS: Glucose,Whole Blood 308 mg/dL (70-110)
[2023-10-25 16:58] LABS: Glucose,Whole Blood 224 mg/dL (70-110)
[2023-10-25] MEDS: D5-0.45% NACL WITH KCL 20MEQ/L 1,000 ML IV SCH (16:58)
[2023-10-25] MEDS: INSULIN ASPART (NovoLOG) 100 UNIT/ML VIAL SQ SCH (17:02)
[2023-10-25 18:03] LABS: Glucose,Whole Blood 211 mg/dL (70-110)
[2023-10-25 18:57] LABS: Glucose,Whole Blood 222 mg/dL (70-110)
[2023-10-25 20:01] LABS: Glucose,Whole Blood 164 mg/dL (70-110)
[2023-10-25 20:42] LABS: African American GFR (CKD) >90 (>60 ml/min/1.73 sqM); Anion Gap 7 mmol/L; Blood Urea Nitrogen 17 mg/dL (9-20); Carbon Dioxide 16 mmol/L (22-30); Chloride 111 mmol/L (98-107); Glucose 147 mg/dL (74-99); Non-African American GFR(CKD) >90 (>60 ml/min/1.73 sqM); Potassium 3.9 mmol/L (3.5-5.1); Sodium 134 mmol/L (137-145)
[2023-10-25] MEDS: SYMBICORT 160-4.5 MCG INHALER INHALATION SCH (20:50)
[2023-10-25] MEDS: ACETAMINOPHEN TAB 325 MG TAB PO PRN (21:09)
[2023-10-25] MEDS: PANTOPRAZOLE 40 MG TABLET PO SCH (21:09)
[2023-10-25] MEDS: MONTELUKAST 10 MG TAB PO SCH (21:09)
[2023-10-25 21:16] LABS: Glucose,Whole Blood 126 mg/dL (70-110)
[2023-10-25 22:27] LABS: Glucose,Whole Blood 117 mg/dL (70-110)
[2023-10-25 23:15] LABS: Glucose,Whole Blood 126 mg/dL (70-110)
[2023-10-26 00:38] LABS: Glucose,Whole Blood 157 mg/dL (70-110)
[2023-10-26 01:14] LABS: Glucose,Whole Blood 171 mg/dL (70-110)
[2023-10-26 02:32] LABS: Glucose,Whole Blood 210 mg/dL (70-110)
[2023-10-26 02:35] LABS: Basophils # (A) 0.1 k/uL (0-0.2); Basophils % (A) 1 %; Eosinophils # (A) 0.2 k/uL (0-0.7); Eosinophils % (A) 2 %; HCT 45.1 % (39.0-53.0); Lymphocytes # (A) 1.8 k/uL (1.0-4.8); Lymphocytes % (A) 21 %; MCH 29.9 pg (25.0-35.0); MCHC 34.9 g/dL (31.0-37.0); Mean Platelet Volume 8.8; Monocytes # (A) 0.6 k/uL (0-1.0); Monocytes % (A) 7 %; Neutrophils # (A) 5.4 k/uL (1.3-7.7); Neutrophils % (A) 65 %; Platelet Count 198 k/uL (150-450); RBC 5.27 m/uL (4.30-5.90); RDW 13.7 % (11.5-15.5); WBC 8.2 k/uL (3.8-10.6)
[2023-10-26 02:39] LABS: ALT 22 U/L (4-49); African American GFR (CKD) >90 (>60 ml/min/1.73 sqM); Anion Gap 8 mmol/L; Blood Urea Nitrogen 18 mg/dL (9-20); Calcium 8.7 mg/dL (8.4-10.2); Carbon Dioxide 15 mmol/L (22-30); Chloride 108 mmol/L (98-107); Glucose 181 mg/dL (74-99); Non-African American GFR(CKD) >90 (>60 ml/min/1.73 sqM); Sodium 131 mmol/L (137-145); Total Bilirubin 0.8 mg/dL (0.2-1.3)
[2023-10-26 02:41] LABS: AST 30 U/L (17-59); Albumin 3.2 g/dL (3.5-5.0); Alkaline Phosphatase 70 U/L (38-126); Magnesium 1.9 mg/dL (1.6-2.3); Phosphorus 3.7 mg/dL (2.5-4.5)
[2023-10-26 02:51] LABS: HGB 15.8 gm/dL (13.0-17.5); MCV 85.5 fL (80.0-100.0)
[2023-10-26 03:19] LABS: Glucose,Whole Blood 211 mg/dL (70-110)
[2023-10-26 04:06] LABS: Glucose,Whole Blood 189 mg/dL (70-110)
[2023-10-26 05:10] LABS: Glucose,Whole Blood 218 mg/dL (70-110)
[2023-10-26 06:24] LABS: Glucose,Whole Blood 230 mg/dL (70-110)
[2023-10-26] MEDS: INSULIN DETEMIR (LEVEMIR) 100 UNIT/ML SYR SQ SCH (06:50)
[2023-10-26] MEDS: D5-0.45% NACL WITH KCL 20MEQ/L 1,000 ML IV SCH (09:40)
[2023-10-26 10:34] LABS: HGB 13.6 gm/dL (13.0-17.5); MCH 29.6 pg (25.0-35.0); MCHC 34.8 g/dL (31.0-37.0); MCV 85.2 fL (80.0-100.0); Mean Platelet Volume 8.3; Platelet Count 189 k/uL (150-450); RBC 4.58 m/uL (4.30-5.90); RDW 13.9 % (11.5-15.5); WBC 5.6 k/uL (3.8-10.6)
[2023-10-26 10:44] LABS: ALT 23 U/L (4-49); AST 25 U/L (17-59); African American GFR (CKD) >90 (>60 ml/min/1.73 sqM); Albumin 2.8 g/dL (3.5-5.0); Alkaline Phosphatase 87 U/L (38-126); Anion Gap 4 mmol/L; Blood Urea Nitrogen 18 mg/dL (9-20); Calcium 8.6 mg/dL (8.4-10.2); Carbon Dioxide 21 mmol/L (22-30); Chloride 105 mmol/L (98-107); Glucose 312 mg/dL (74-99); Magnesium 1.8 mg/dL (1.6-2.3); Non-African American GFR(CKD) >90 (>60 ml/min/1.73 sqM); Potassium 4.5 mmol/L (3.5-5.1); Sodium 130 mmol/L (137-145); Total Bilirubin 0.6 mg/dL (0.2-1.3); Total Protein 5.1 g/dL (6.3-8.2)
[2023-10-26 11:40] LABS: Glucose,Whole Blood 238 mg/dL (70-110)
[2023-10-26 17:13] LABS: Glucose,Whole Blood 310 mg/dL (70-110)
[2023-10-26 20:06] LABS: Glucose,Whole Blood 326 mg/dL (70-110)
--- NOTE | 2023-10-27 01:34 | PN ---
PROGRESS NOTE CHIEF COMPLAINT: Diabetes mellitus. HISTORY OF PRESENT ILLNESS: This gentleman is doing fairly well and sugars are coming down. His insulin will be raised one more time. PHYSICAL EXAMINATION,: CHEST: Clear. CARDIAC: Normal. ABDOMEN: Soft, nontender. EXTREMITIES: Normal. IMPRESSION: New-onset diabetes mellitus. PLAN: Raise Lantus 10 units and he can probably go home in the next day or two. MMODL / IJN: [id number] /
--- NOTE | 2023-10-27 01:40 | HP ---
HISTORY AND PHYSICAL CHIEF COMPLAINT: Weakness, malaise and nausea with frequency and excessive thirst. HISTORY OF PRESENT ILLNESS: This is first-time admission for this 63-year-old white male. For a week or two he has been feeling weak, run down and short of breath with frequency. He came to the emergency room where he had a blood sugar of 5 and 83. He has never been diagnosed with diabetes. He has a family history. REVIEW OF SYSTEMS: He has had some blurry vision, but he has had no chest pain, abdominal pain, hematemesis, melena, hematochezia, jaundice, renal failure, dysuria, hematuria, incontinence, etc. PAST MEDICAL HISTORY: All otherwise unremarkable and noncontributory. FAMILY HISTORY: All otherwise unremarkable and noncontributory. PERSONAL HISTORY: All otherwise unremarkable and noncontributory. SOCIAL HISTORIES: All otherwise unremarkable and noncontributory. LABORATORY STUDIES: The pH was 7.14 and blood sugar was 583. PHYSICAL EXAMINATION: VITAL SIGNS: Blood pressure is 168/113 with a pulse of 124 and regular. GENERAL: He appeared to be well-developed, well-nourished, in no acute distress. SKIN: Skin color is normal. Skin is warm and dry. LYMPHATICS: Lymph nodes are not enlarged. HEAD, EARS, EYES, NOSE, MOUTH AND THROAT: Normal. Mucous membranes are dry. CHEST: Clear. CARDIAC: Normal. ABDOMEN: Soft, nontender. EXTREMITIES: Normal. IMPRESSION: 1. New-onset diabetes mellitus. 2. Metabolic acidosis. 3. Dehydration. 4. Hypertension. PLAN: 1. Bedrest. 2. IV fluids. 3. History of 2 basal bolus insulin program. MMODL / IJN: [id number] /
[2023-10-27 05:54] LABS: Glucose,Whole Blood 258 mg/dL (70-110)
[2023-10-27] MEDS: INSULIN DETEMIR (LEVEMIR) 100 UNIT/ML SYR SQ SCH (06:39)
[2023-10-27 11:04] VITALS: BMI 27.1
[2023-10-27 11:58] LABS: Glucose,Whole Blood 283 mg/dL (70-110)
[2023-10-27 16:47] LABS: Glucose,Whole Blood 226 mg/dL (70-110)
[2023-10-27 19:55] LABS: Glucose,Whole Blood 195 mg/dL (70-110)
[2023-10-27] MEDS: INSULIN ASPART (NovoLOG) 100 UNIT/ML VIAL SQ SCH (21:17)
--- NOTE | 2023-10-27 21:25 | PN ---
PROGRESS NOTE DATE OF SERVICE: 10/27/2023 CHIEF COMPLAINT: Newly diagnosed uncontrolled diabetes mellitus. HISTORY OF PRESENT ILLNESS: This gentleman is doing well. Feels well. It was planned that he would go home today, but his sugar is still quite high and he will be raised to 50 units of Lantus. PHYSICAL EXAMINATION: CHEST: Clear. CARDIAC: Normal. ABDOMEN: Soft, nontender. IMPRESSION: New onset uncontrolled diabetes mellitus. PLAN: Increase basal insulin. MMODL / IJN: [id number] /
[2023-10-28 00:19] VITALS: RESP 18
[2023-10-28 05:59] LABS: Glucose,Whole Blood 152 mg/dL (70-110)
[2023-10-28] MEDS: INSULIN DETEMIR (LEVEMIR) 100 UNIT/ML SYR SQ SCH (06:23)
[2023-10-28 07:47] VITALS: BP 137/87; PULSE 86; TEMP 97.6
[2023-10-28 12:11] LABS: Glucose,Whole Blood 261 mg/dL (70-110)
--- NOTE | 2023-10-28 20:52 | DS ---
DISCHARGE SUMMARY CHIEF COMPLAINT: Weakness and malaise. HISTORY OF PRESENT ILLNESS AND PHYSICAL EXAM: Details of this man's history and physical can be found in the initial workup. LABORATORY STUDIES: While he was in the hospital, he had laboratory studies, details of which can be found in the laboratory section of his chart. COURSE IN THE HOSPITAL: After admission, he was placed on bedrest, started on intravenous fluids and insulin. His blood sugars gradually came down and he was feeling much better. He was stabilized and he is doing well, felt that he could go home on the and will follow up in the office in several days. FINAL DIAGNOSES: 1. New onset uncontrolled type 2 diabetes mellitus. 2. Dehydration. OPERATIONS: None. CONSULTATIONS: None. He is improved. MMODL / IJN: [id number] /
== END 2023-10-28 14:05 | disposition home or self-care (01) | DRG 638 ==
LOC: EC 10:38 → 3SCARD 12:37
PROVIDERS: ADMIT Family Medicine; ATTEND Family Medicine
DX: E11.10 Type 2 diabetes mellitus with ketoacidosis without coma (principal); E87.1 Hypo-osmolality and hyponatremia; I10 Essential (primary) hypertension; Z28.310 Unvaccinated for COVID-19; E86.0 Dehydration; J01.00 Acute maxillary sinusitis, unspecified; K44.9 Diaphragmatic hernia without obstruction or gangrene; K59.00 Constipation, unspecified; Z79.51 Long term (current) use of inhaled steroids; Z79.899 Other long term (current) drug therapy
CPT/HCPCS: 36415; 70450; 71046; 74018; 80051; 80053; 82009; 82565; 82803; 82947; 83036; 83605; 83735; 84100; 84520; 85025; 85027; 87636; 93005; 94640; 96361; 96374; 99291